=== PATIENT | female | born 1990 | race Caucasian/White ===

== ENCOUNTER → 2016-10-16 | Outpatient (CLI) | payer BC ==
[2016-10-16 13:47] LABS: BASO # 0.1 K/mm3 (0.0-0.2); BASO % 0.8 % (0.0-1.0); EOS # 0.2 K/mm3 (0.0-0.50); EOS % 2.3 % (0.0-3.0); LARGE UNSTAINED CELL # 0.2 K/mm3 (0.0-0.4); LARGE UNSTAINED CELL % 1.9 % (0.0-4.0); LYMPH # 2.4 K/mm3 (1.5-6.5); MEAN CORPUSCULAR HEMOGLOBIN 29.4 pg (27.0-33.0); MEAN CORPUSCULAR HGB CONC 32.5 g/dl (32.0-36.5); MEAN CORPUSCULAR VOLUME 90.4 fl (80.0-96.0); MONO # 0.3 K/mm3 (0.0-0.8); MONO % 3.1 % (0.0-5.0); NEUTROPHILS # 6.3 K/mm3 (1.8-7.7); NEUTROPHILS % 66.9 % (36.0-66.0); PLATELET COUNT, AUTOMATED 295 k/mm3 (150-450); WHITE BLOOD COUNT 9.5 K/mm3 (4.0-10.0)
[2016-10-16 14:05] LABS: HBsAg Prenatal NEGATIVE (NEGATIVE)
[2016-10-16 14:14] LABS: HIV SCRN NEGATIVE (NEGATIVE); HIV SCRN1 NEGATIVE (NEGATIVE)
[2016-10-16 14:15] LABS: CONTROL LINE INT CTR LINE PRESENT
== END ==
LOC: M SMT 11:18
PROVIDERS: ATTEND Obstetrics & Gynecology
DX: Z34.81 Encounter for supervision of other normal pregnancy, first trimester (principal)

== ENCOUNTER → 2016-11-19 | Outpatient (CLI) | payer BC | LOC: M SMT 09:02 | PROVIDERS: ATTEND Obstetrics & Gynecology | DX: O99.211 Obesity complicating pregnancy, first trimester (principal) ==

== ENCOUNTER → 2017-01-03 | Outpatient (CLI) | payer BC ==
--- NOTE | 2017-01-03 15:54 | REP ---
OB ULTRASOUND: Real-time sonographic evaluation of the gravid uterus is performed utilizing transabdominal technique. There is a single living intrauterine gestation. Estimated gestational age 19 weeks 1 day based on LMP with EDC 05/29/2017. Today's measurements indicate appropriate growth. BPD 46 mm = 19 weeks 6 days, 70th percentile HC 166 mm = 19 weeks 2 days, 56th percentile AC 141 mm = 19 weeks 3 days, 58th percentile FL 30 mm = 19 weeks 1 day, 52nd percentile HC/AC ratio 1.18, within normal range. Estimated weight 288 grams, 56th percentile. Cervix is closed and measures 3.7 cm in length. heart rate 147 beats per minute. SEEN/GROSSLY UNREMARKABLE Lateral ventricles yes Posterior fossa yes Upper lip no Four-chamber heart no LVOT no RVOT no Stomach yes Cord insertion yes Three vessel cord yes Kidneys yes Bladder yes Spine yes position: Vertex. Placenta: Anterior and grade 0 with no previa or abruption. Amniotic fluid: Within normal limits. Signed by Olvin Encinas MD 01/03/2017 04:01 P
== END ==
LOC: M SMT 13:51
PROVIDERS: ATTEND Obstetrics & Gynecology
DX: Z34.82 Encounter for supervision of other normal pregnancy, second trimester (principal)

== ENCOUNTER → 2017-02-21 | Outpatient (CLI) | payer BC ==
[~2017-02-21] MED LIST: IBUP-1114 PO; IBUPOTC PO; OXYC1TAB23 PO; PRENTAB9 PO; SPRI28TA PO
--- NOTE | 2017-02-21 17:32 | REP ---
Obstetric sonography: History: Supervision of followup anatomy. Comparison sonography 01/03/2017. Findings: Scanning through the gravid uterus demonstrates a viable single intrauterine gestation in a cephalic lie. motion is observed and heart rate is recorded at 135 beats per minute. An anterior grade 1 placenta is seen without evidence of previa or abruption. Amniotic fluid is subjectively normal. Closed cervical length is 5.5 cm measured transabdominally. No extrauterine abnormality is observed. There has been appropriate interval growth. Umbilical cord is draping at the shoulders at the time of today's study. No anomaly is seen. The following anatomic structures are identified and felt to be sonographically unremarkable: cranium, choroid plexus, cavum, face and profile, lungs, four-chamber heart, diaphragm, left-sided stomach, abdominal wall cord insertion, three-vessel umbilical cord, kidneys and bladder, spine, lower extremities. Left and right ventricular cardiac outflow tract views still less than optimally seen. Biometry chart: BPD 6.6 cm 26 weeks 4 days Head circumference 23.8 cm 25 weeks 6 days Abdominal circumference 21.8 cm 26 weeks 2 days Femur length 4.9 cm 26 weeks 2 days Humeral length 4.3 cm 26 weeks 0 days HC/AC ratio normal 1.09 cephalic index normal 0.78 estimated weight 912 grams, 2 pounds 0 ounces, 47th percentile for 26 weeks 1 day. Impression: Viable single intrauterine gestation at 26 weeks 1 day by today's composite sonographic criteria. Expected gestational age estimate based on prior sonography is 26 weeks 2 days. BRAYAN by prior sonography 05/28/2017. anatomic survey is felt to be complete except for nonvisualization of cardiac outflow tracts due to lie. Signed by Emanuel Fisher MD 02/24/2017 05:34 P
== END ==
LOC: M RAD 15:58
PROVIDERS: ATTEND Obstetrics & Gynecology
DX: O99.212 Obesity complicating pregnancy, second trimester (principal); Z3A.26 26 weeks gestation of pregnancy

== ENCOUNTER → 2017-03-11 | Outpatient (CLI) | payer BC ==
[2017-03-11 13:36] LABS: BASO % 0.2 % (0.0-1.0); EOS # 0.1 K/mm3 (0.0-0.50); EOS % 1.4 % (0.0-3.0); LARGE UNSTAINED CELL # 0.1 K/mm3 (0.0-0.4); LARGE UNSTAINED CELL % 0.9 % (0.0-4.0); LYMPH # 1.5 K/mm3 (1.5-6.5); LYMPH % 18.1 % (24.0-44.0); MEAN CORPUSCULAR HEMOGLOBIN 30.4 pg (27.0-33.0); MEAN CORPUSCULAR HGB CONC 33.2 g/dl (32.0-36.5); MEAN CORPUSCULAR VOLUME 91.8 fl (80.0-96.0); MONO # 0.2 K/mm3 (0.0-0.8); NEUTROPHILS # 6.1 K/mm3 (1.8-7.7); NEUTROPHILS % 76.3 % (36.0-66.0); PLATELET COUNT, AUTOMATED 211 k/mm3 (150-450); WHITE BLOOD COUNT 7.9 K/mm3 (4.0-10.0)
== END ==
LOC: M SMT 08:23
PROVIDERS: ATTEND Advanced Practice Midwife
DX: Z34.83 Encounter for supervision of other normal pregnancy, third trimester (principal)

== ENCOUNTER → 2017-03-12 | Outpatient (REF) | payer BC | LOC: M LAB REF 17:18 | PROVIDERS: ATTEND Obstetrics & Gynecology | DX: O99.212 Obesity complicating pregnancy, second trimester (principal) ==

== ENCOUNTER → 2017-04-09 | Outpatient (CLI) | payer BC ==
--- NOTE | 2017-04-09 18:18 | REP ---
Obstetric sonography: History: Supervision of followup anatomy. Findings: Scanning demonstrates a viable single intrauterine gestation in a cephalic lie. motion is observed and heart rate is recorded at 158 beats per minute. An anterior grade 2 placenta is seen without evidence of previa or abruption. Amniotic fluid is subjectively normal. Closed cervical length is 5.5 cm measured transabdominally. No extrauterine abnormality is observed. There has been appropriate interval growth. Umbilical cord is seen draping across the shoulders. No anomaly is seen. The following anatomic structures are identified today and felt to be sonographically unremarkable: cranium, cavum, face and profile, four-chamber heart with left and right ventricular outflow tract views, diaphragm, left-sided stomach, three-vessel cord. Biometry chart: BPD 8.1 cm 32 weeks 4 days Head circumference 28.3 cm 31 weeks 0 days Abdominal circumference 28.0 cm 32 weeks 0 days Femur length 6.3 cm 32 weeks 4 days Humeral length 5.3 cm 31 weeks 1 day HC/AC ratio normal 1.0, cephalic index normal 0.83, estimated weight 1913 grams 4 pounds 3 ounces, 30th percentile for 32-weeks 6 days. MAUREEN normal 18.9 cm. SD ratio in the umbilical cord artery by Doppler normal 1.99. Impression: Viable single intrauterine gestation at 31 weeks 6 days by today's composite sonographic criteria. There is appropriate interval growth. In comparison with the prior study, anatomic survey is felt to be complete. Signed by Emanuel Fisher MD 04/09/2017 06:41 P
== END ==
LOC: M RAD 16:17
PROVIDERS: ATTEND Obstetrics & Gynecology
DX: Z34.83 Encounter for supervision of other normal pregnancy, third trimester (principal)

== ENCOUNTER → 2017-04-29 | Outpatient (REF) | payer BC | LOC: M LAB REF 17:13 | PROVIDERS: ATTEND Advanced Practice Midwife | DX: Z36 Encounter for antenatal screening of mother (principal) ==

== ENCOUNTER → 2017-05-18 | Outpatient (CLI) | payer BC ==
[2017-05-18 09:45] LABS: MEAN CORPUSCULAR HEMOGLOBIN 29.9 pg (27.0-33.0); MEAN CORPUSCULAR HGB CONC 33.3 g/dl (32.0-36.5); MEAN CORPUSCULAR VOLUME 89.7 fl (80.0-96.0); RED CELL DISTRIBUTION WIDTH 12.9 % (11.5-14.5); WHITE BLOOD COUNT 8.9 10^3/uL (4.0-10.0)
[2017-05-18 09:56] LABS: ALT/SGPT 25 U/L (12-78); AST/SGOT 15 U/L (15-37); BILIRUBIN,TOTAL 0.6 MG/DL (0.2-1.0); CREATININE FOR GFR 0.48 MG/DL (0.55-1.02); CREATININE, SERUM 0.5 MG/DL (0.6-1.0); GLOMERULAR FILTRATION RATE > 60.0 (>60); URIC ACID 4.4 MG/DL (2.6-6.0)
[2017-05-18 10:10] LABS: CREATININE CLEARANCE, URINE 238.5 ML/MIN (75-115)
== END ==
LOC: M LAB 08:59
PROVIDERS: ATTEND Advanced Practice Midwife
DX: O16.3 Unspecified maternal hypertension, third trimester (principal); Z3A.00 Weeks of gestation of pregnancy not specified

== ENCOUNTER → 2017-11-23 | Outpatient (REF) | payer BC | LOC: M LAB REF 09:17 | DX: J02.9 Acute pharyngitis, unspecified (principal) | CPT/HCPCS: 87081 ==

== ENCOUNTER → 2019-01-18 | Outpatient (CLI) | payer BC ==
--- NOTE | 2019-01-19 08:26 | REP ---
Pelvic ultrasound including transabdominal, endovaginal and Doppler ultrasound assessment for right lower quadrant pain and history of ovarian cyst: The bladder is adequately distended. The uterus is retroverted. The uterus is normal size measuring 7.4 x 4.1 x 5.3 cm. The endometrium is not thickened measuring 5.8 mm. Right ovary: The right ovary is normal size measuring 2.9 x 2.0 x 2.2 cm. There is no dominant mass or cyst. There is vascular flow with the Doppler resistive index of the parenchymal arteries measuring 0.40. Left ovary: The left ovary is normal size measuring 2.1 x 2.1 x 1.2 cm. There is no dominant mass or cyst. There is vascular flow with the Doppler resistive index of the parenchymal arteries measuring 0.56. There is no free fluid. Impression: Essentially negative pelvic ultrasound. Electronically Signed by Olvin Laughlin MD 01/19/2019 08:18 A
== END ==
LOC: M RAD 17:02
PROVIDERS: ATTEND Advanced Practice Midwife
DX: R10.2 Pelvic and perineal pain (principal)

== ENCOUNTER → 2019-02-10 | Outpatient (CLI) | payer BC | LOC: M SMT 10:27 | PROVIDERS: ATTEND Advanced Practice Midwife | DX: Z12.4 Encounter for screening for malignant neoplasm of cervix (principal) ==

== ENCOUNTER → 2021-06-14 | Outpatient (REF) | payer BC ==
[2021-06-14 14:26] LABS: BASO # 0.1 10^3/uL (0.0-0.2); BASO % 0.7 % (0.0-1.0); EOS # 0.2 10^3/uL (0.0-0.5); HEMATOCRIT 42.1 % (36.0-47.0); HEMOGLOBIN 13.2 g/dl (12.0-15.5); LYMPH # 2.6 10^3/uL (1.5-5.0); MEAN CORPUSCULAR HEMOGLOBIN 29.1 pg (27.0-33.0); MEAN CORPUSCULAR HGB CONC 31.4 g/dl (32.0-36.5); MEAN CORPUSCULAR VOLUME 92.9 fl (80.0-96.0); MONO # 0.4 10^3/uL (0.0-0.8); MONO % 4.2 % (2.0-8.0); NEUTROPHILS # 6.6 10^3/uL (1.5-8.5); NEUTROPHILS % 66.9 % (36.0-66.0); PLATELET COUNT, AUTOMATED 325 10^3/uL (150-450); RED BLOOD COUNT 4.53 10^6/uL (4.00-5.40); WHITE BLOOD COUNT 9.9 10^3/uL (4.0-10.0)
[2021-06-14 16:02] LABS: ALBUMIN 3.8 GM/DL (3.2-5.2); ALT/SGPT 22 U/L (12-78); BILIRUBIN,TOTAL 0.6 MG/DL (0.2-1.0); BLOOD UREA NITROGEN 15 MG/DL (7-18); CALCIUM LEVEL 9.6 MG/DL (8.5-10.1); CARBON DIOXIDE LEVEL 28 MEQ/L (21-32); CHLORIDE LEVEL 108 MEQ/L (98-107); CHOLESTEROL LEVEL 176 MG/DL (<200); CHOLESTEROL RISK RATIO 3.826 (<5); CREATININE FOR GFR 0.73 MG/DL (0.55-1.30); FREE T4 1.03 NG/DL (0.76-1.46); GLOMERULAR FILTRATION RATE > 60.0 (>60); GLUCOSE, FASTING 86 MG/DL (70-100); HDL CHOLESTEROL 46 MG/DL (>40); LDL CHOLESTEROL 100 MG/DL (<100); NON-HDL-C 130 MG/DL; POTASSIUM SERUM 4.7 MEQ/L (3.5-5.1); SODIUM LEVEL 140 MEQ/L (136-145); TOTAL 25(OH) VITAMIN D 22.6 NG/ML (30.0-100.0); TOTAL PROTEIN 7.6 GM/DL (6.4-8.2); TRIGLYCERIDES LEVEL 150 MG/DL (<150)
== END ==
LOC: M SFHCADAM 10:49
PROVIDERS: ATTEND Physician Assistant Medical
DX: F32.1 Major depressive disorder, single episode, moderate (principal); F41.1 Generalized anxiety disorder; E66.01 Morbid (severe) obesity due to excess calories

== ENCOUNTER 2022-03-09 17:35 | Emergency (ER) | payer BC ==
[~2022-03-09] VITALS: Ht 160 cm; Wt 108.0 kg
[2022-03-09 21:19] LABS: BASO # 0.1 10^3/uL (0.0-0.2); BASO % 0.8 % (0.0-1.0); EOS # 0.1 10^3/uL (0.0-0.5); EOS % 0.9 % (0.0-3.0); HEMATOCRIT 41.7 % (36.0-47.0); HEMOGLOBIN 13.3 g/dl (12.0-15.5); LYMPH # 2.3 10^3/uL (1.5-5.0); LYMPH % 23.5 % (24.0-44.0); MEAN CORPUSCULAR HEMOGLOBIN 29.2 pg (27.0-33.0); MEAN CORPUSCULAR HGB CONC 31.9 g/dl (32.0-36.5); MEAN CORPUSCULAR VOLUME 91.4 fl (80.0-96.0); MONO # 0.6 10^3/uL (0.0-0.8); MONO % 5.9 % (2.0-8.0); NEUTROPHILS # 6.7 10^3/uL (1.5-8.5); NEUTROPHILS % 68.6 % (36.0-66.0); PLATELET COUNT, AUTOMATED 302 10^3/uL (150-450); RED BLOOD COUNT 4.56 10^6/uL (4.00-5.40); WHITE BLOOD COUNT 9.7 10^3/uL (4.0-10.0)
[2022-03-09 21:47] LABS: BLOOD UREA NITROGEN 11 MG/DL (7-18); C REACTIVE PROTEIN QUANTITATIV 6.59 MG/DL (0.00-0.30); CALCIUM LEVEL 9.3 MG/DL (8.5-10.1); CARBON DIOXIDE LEVEL 28 MEQ/L (21-32); CHLORIDE LEVEL 103 MEQ/L (98-107); CREATININE FOR GFR 0.68 MG/DL (0.55-1.30); GLOMERULAR FILTRATION RATE > 60.0 (>60); GLUCOSE, FASTING 94 MG/DL (70-100); POTASSIUM SERUM 4.2 MEQ/L (3.5-5.1); SODIUM LEVEL 136 MEQ/L (136-145); URIC ACID 5.2 MG/DL (2.6-6.0)
[2022-03-09 21:54] LABS: ERYTHROCYTE SEDIMENTATION RATE 47 mm/hr (0-20)
[2022-03-09] MEDS ORDERED: INDO50CA91 PO (22:10)
[2022-03-09] MEDS ORDERED: CEPH500C PO (22:10)
[2022-03-09] MEDS ORDERED: CEPHALEXIN 500 MG CAP PO ONE (22:10)
[2022-03-09 22:17] VITALS: BP 116/74
== END 2022-03-09 22:18 | disposition home or self-care (01) ==
LOC: M ED 17:35
DX: M79.671 Pain in right foot (principal); R50.9 Fever, unspecified; L81.9 Disorder of pigmentation, unspecified

== ENCOUNTER → 2022-08-07 | Outpatient (CLI) | payer BC ==
[~2022-08-07] MED LIST changes: +CEPH500C PO; +INDO50CA91 PO
== END ==
LOC: M WHC 14:55
PROVIDERS: ATTEND Physician Assistant Medical
DX: R92.8 Other abnormal and inconclusive findings on diagnostic imaging of breast (principal); N63.31 Unspecified lump in axillary tail of the right breast